=== PATIENT | male | born 1960 | race Caucasian/White ===

== ENCOUNTER 2019-12-27 14:02 | Emergency (ER) | payer OTHER ==
[~2019-12-27] VITALS: Ht 185.4 cm; Wt 113.4 kg
--- OUTSIDE RECORDS SUMMARY | ~2019-12-27 | XMS | Clinical Summary ---
Demographics + + + | Address | [address] | | | [place] [address] | + + + | Home Phone | | + + + | Preferred Language | Unknown | + + + | Marital Status | Single | + + + | Religion Affiliation | Unknown | + + + | Race | or Other | + + + | Ethnic Group | Not or | + + + Author + + + | Author | [facility] | | | and Piter | + + + | Organization | [facility] | | | and [place] | + + + | Address | Unknown | + + + | Phone | Unavailable | + + + Care Team Providers + +------+ + | Care Slate Mixer Name | Role | Phone | + +------+ + PCP | Unavailable | + +------+ + Allergies Not on File Medications Not on file Active Problems Not on file Social History + +-------+ +--------+------+ | Tobacco Use | Types | Packs/Day | Years | Date | | | | | Used | | + +-------+ +--------+------+ | Never Assessed | | | | | + +-------+ +--------+------+ + + + | Sex Assigned at | Date Recorded | | | | + + + | Not on file | | + + + Last Filed Vital Signs Not on file Plan of Treatment + + +-------+ + | Health Maintenance | Due Date | Last | Comments | | | | Done | | + + +-------+ + | Vaccine: | | | | | Dtap/Tdap/Td (1 - | 0 | | | | Tdap) | | | | + + +-------+ + | Vaccine: Zoster (1 | | | | | of 2) | 1 | | | + + +-------+ + | Vaccine: Influenza | | | | | (#1) | 0 | | | + + +-------+ + Results Not on filefrom Last 3 Months"
--- OUTSIDE RECORDS SUMMARY | ~2019-12-27 | XMS | Encounter Summary ---
Demographics + + + | Address | [address] | | | [place] [address] | + + + | Home Phone | | + + + | Preferred Language | Unknown | + + + | Marital Status | Single | + + + | Mormonism Affiliation | Unknown | + + + | Race | or Other | + + + | Ethnic Group | Not or | + + + Author + + + | Author | [facility] | | | and Piter | + + + | Organization | [facility] | | | and [place] | + + + | Address | Unknown | + + + | Phone | Unavailable | + + + Care Team Providers + +------+ + | Care Play Writer Name | Role | Phone | + +------+ + PCP | Unavailable | + +------+ + Encounter Details +--------+ + + + + | Date | Type | Department | Care Team | Description | +--------+ + + + + | 08/14/ | Hospital | [facility] | Fabian Elizalde MD | | | 2011 | Encounter | [facility] | [address] | | | | | CLINICAL LABORATORY | [place] [address] | | | | | [address] | [phone] | | | | | [place], [place] | | | | | | [address] | | | | | | [phone] | | | +--------+ + + + [...] At | + + + | CASE: [id number] PATIENT: ELFEGO GUSTAVO Surgical Pathology Report | [...] | | specimen entirely submitted in cassette [facility]:lac | | | MICROSCOPIC EXAMINATION: Histologic sections of all submitted | | | blocks are examined by light microscopy. These findings, together | | | with the gross examination, support the pathologic diagnosis. | | | Brendan Archer MD Electronically signed Aug 17, 2011 | | | 11:43:34AM | | + + + + +---------+ + + | Performing | Address | City/State/[facility] | Phone Number | | Organization | | | | + +---------+ + + | EXTERNAL LAB | | | | + +---------+ + + documented in this encounter Visit Diagnoses Not on filedocumented in this encounter
[~2019-12-27 14:02] MED LIST: ADVIL200 MG PO; CHLORTHALIDONE25 MG PO; LACTULOSE10 GM/15 M PO; MAGNESIUM CITR296 ML PO
[2019-12-27] MEDS ORDERED: METOPROLOL SUCC50 MG (14:29)
[2019-12-27] MEDS ORDERED: DECADRON6 MG PO (16:16)
== END 2019-12-27 16:43 | disposition home or self-care (01) ==
LOC: ED 14:02
DX: B34.9 Viral infection, unspecified (principal); Z20.828 Contact with and (suspected) exposure to other viral communicable diseases; I10 Essential (primary) hypertension; Z87.891 Personal history of nicotine dependence; Z88.5 Allergy status to narcotic agent; Z88.8 Allergy status to other drugs, medicaments and biological substances; Z79.899 Other long term (current) drug therapy
CPT/HCPCS: 71045; 80053; 82803; 83605; 85025; 85379; 96374; 99284-25; J1100

== ENCOUNTER 2019-12-27 21:05 | Emergency (ER) | payer OTHER ==
[~2019-12-27] VITALS: Ht 185.4 cm; Wt 113.4 kg
--- OUTSIDE RECORDS SUMMARY | ~2019-12-27 | XMS | Encounter Summary ---
Demographics + + + | Address | [address] | | | [place] [address] | + + + | Home Phone | | + + + | Preferred Language | Unknown | + + + | Marital Status | Single | + + + | Nondenominational Affiliation | Unknown | + + + | Race | or Other | + + + | Ethnic Group | Not or | + + + Author + + + | Author | [facility] | | | and Piter | + + + | Organization | [facility] | | | and [place] | + + + | Address | Unknown | + + + | Phone | Unavailable | + + + Care Team Providers + +------+ + | Care Shuttle Spotter Name | Role | Phone | + +------+ + PCP | Unavailable | + +------+ + Encounter Details +--------+ + + + + | Date | Type | Department | Care Team | Description | +--------+ + + + + | 08/14/ | Hospital | [facility] | Fabian Elizalde MD | | | 2011 | Encounter | [facility] | [address] | | | | | CLINICAL LABORATORY | [place] [address] | | | | | [address] | [phone] | | | | | [place], [place] | | | | | | [address] | | | | | | [phone] | | | +--------+ + + + + Social History + +-------+ +--------+------+ | Tobacco [...] on file | | + + + documented as of this encounter Plan of Treatment Not on filedocumented as of this encounter Procedures + +--------+ + + + | Procedure Name | Priori | Date/Time | Associated Diagnosis | Comments | | | ty | | | | + +--------+ + + + | TISSUE REQUEST FOR | Routin | 08/17/2011 | | Results for this | | PATHOLOGY (NON-ORD) | e | 11:43 AM | | procedure are in the | | | | PDT | | results section. | + +--------+ + + + documented in this encounter Results Tissue Request For Pathology (08/17/2011 11:43 AM PDT) + + | Specimen | + + | | + + + + + | Narrative | Performed At | + + + | [id number]: [id number] PATIENT: ELFEGO GUSTAVO Surgical Pathology Report | EXTERNAL LAB | | PATHOLOGIC DIAGNOSIS: COLON, ENDOSCOPIC BIOPSIES, | | | DESIGNATED FROM TRANSVERSE COLON: - TWO TUBULAR ADENOMA | | | FRAGMENTS. - ONE FRAGMENT OF HYPERPLASTIC COLONIC MUCOSA. | | | BM:lac:C2NR CLINICAL HISTORY: 08/15/2011. [211.3]. | | | GROSS DESCRIPTION: The specimen is received in formalin labeled | | | "Elfego Conte" and designated "Transverse colon" consists of one | | | yellow-adam soft tissue fragment that is 0.4 cm in greatest dimension | | | and one brown polypoid tissue fragment that is 0.6 cm in greatest | | | dimension. The polypoid tissue fragment is inked, bisected; and the | | | specimen entirely submitted in cassette [facility]:lac | | | MICROSCOPIC EXAMINATION: Histologic sections of all submitted | | | blocks are examined by light microscopy. These findings, together | | | with the gross examination, support the pathologic diagnosis. | | | Brendan Archer MD Electronically signed Aug 17, 2011 | | | 11:43:34AM | | + + + + +---------+ + + | Performing | Address | City/State[facility] | Phone Number | | Organization | | | | + +---------+ + + | EXTERNAL LAB | | | | + +---------+ + + documented in this encounter Visit Diagnoses Not on filedocumented in this encounter
--- OUTSIDE RECORDS SUMMARY | ~2019-12-27 | XMS | Clinical Summary ---
Demographics + + + | Address | [address] | | | [place] [address] | + + + | Home Phone | | + + + | Preferred Language | Unknown | + + + | Marital Status | Single | + + + | Uatsdin Affiliation | Unknown | + + + | Race | or Other | + + + | Ethnic Group | Not or | + + + Author + + + | Author | [facility] | | | and Piter | + + + | Organization | [facility] | | | and [place] | + + + | Address | Unknown | + + + | Phone | Unavailable | + + + Care Team Providers + +------+ + | Care Mold Shifter Name | Role | Phone | + [...]
[~2019-12-27 21:05] MED LIST changes: +DECADRON6 MG PO; +METOPROLOL SUCC50 MG
--- OUTSIDE RECORDS SUMMARY | 2019-12-27 21:08 | XMS ---
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 - 2 Visits in 30 Days CARE PROVIDERS There are no care providers on record at this time. Roddy has no Care Guidelines for this patient. Fabrice VIS[facility] COUNT (12 MO.) [facility] T[facility] NOTE: Visits indicate total known visits. ED/C VISIT TRACKING (12 MO.) 12/27/2019 21:06 [facility] [place] TYPE: Emergency COMPLAINT: - FLU SYMPTOMS 12/27/2019 14:03 [facility] [place] TYPE: Emergency COMPLAINT: - SOB INPATIENT VISIT TRACKING (12 MO.) No inpatient visits to display in this time frame [id number]
== END 2019-12-28 08:22 | disposition home or self-care (01) ==
LOC: ED 21:05
DX: J98.9 Respiratory disorder, unspecified (principal); Z20.828 Contact with and (suspected) exposure to other viral communicable diseases; I10 Essential (primary) hypertension; Z87.891 Personal history of nicotine dependence; Z88.5 Allergy status to narcotic agent; Z88.8 Allergy status to other drugs, medicaments and biological substances; Z79.899 Other long term (current) drug therapy
CPT/HCPCS: 96360; 99284-25; J7030

== ENCOUNTER 2021-01-24 09:54 | Emergency (ER) | payer OTHER ==
[~2021-01-24] VITALS: Ht 185.4 cm; Wt 113.4 kg
[~2021-01-24 09:54] MED LIST changes: -CHLORTHALIDONE25 MG PO; +HYDROCHLOROTH12.5 M1 PO; -METOPROLOL SUCC50 MG; +METOPROLOL SUCC50 MG PO
== END 2021-01-24 19:00 | disposition home or self-care (01) ==
LOC: ED 09:54
DX: L03.116 Cellulitis of left lower limb (principal); I10 Essential (primary) hypertension; Z20.822 Contact with and (suspected) exposure to COVID-19; Z87.891 Personal history of nicotine dependence; Z79.899 Other long term (current) drug therapy; Z88.5 Allergy status to narcotic agent; Z88.8 Allergy status to other drugs, medicaments and biological substances
CPT/HCPCS: 71045; 80053; 83605; 85025; 96372; 99283-25; J0696; U0003

== ENCOUNTER 2021-01-26 08:09 | Inpatient (IN) | payer OTHER ==
[~2021-01-26] VITALS: Ht 185.4 cm; Wt 132.0 kg
--- OUTSIDE RECORDS SUMMARY | 2021-01-26 08:18 | XMS ---
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 Roddy has no Care Guidelines for this patient. Fabrice [facility] (12 MO.) [facility] NOTE: Visits indicate total known visits. ED/C VISIT TRACKING (12 MO.) 01/26/2021 08:11 [facility] [place] TYPE: Emergency COMPLAINT: - L LEG SWELLING/PAIN 01/24/2021 09:55 [facility] [place] TYPE: Emergency COMPLAINT: - SKIN PROBLEM INPATIENT VISIT TRACKING (12 MO.) No inpatient visits to display in this time frame [id number]
--- NOTE | 2021-01-26 14:33 | NUR ---
PATIENT ADMITTED TO MED SURG. PATIENT DENIES PAIN OR NAUSEA. PATIENT HAS LEFT LEG ELEVATED ON 3 PILLOWS, REDNESS ON LEUNG IS OUTLINED, RED, HOT, SKIN IS INTACT WITH NO DRAINAGE. PATIENT HAS HAD LUNCH. IV ROCEPHIN IS INFUSING TO RIGHT PICC LINE. PATIENT REPORTS THAT HE HAS NOT HAD A BM FOR 4-5 DAYS AND IS INTERESTED IN SOMETHING FOR THAT. X2 GUARDS AT BEDSIDE. IV VANCO TO BE INFUSED WHEN AVAILABLE FROM PHARMACY.
[2021-01-26] MEDS ORDERED: LOTRIMIN AF12 GM TOP (16:04)
[2021-01-26] MEDS ORDERED: ONDANSETRON ODT4 MG PO (16:05)
[2021-01-26] MEDS ORDERED: CEFTRIAXONE1 G2 IM (16:06)
[2021-01-26] MEDS ORDERED: ULTRAM50 MG PO (16:07)
[2021-01-26] MEDS ORDERED: DOXYCYCLINE HY100 MG PO (16:07)
--- NOTE | 2021-01-26 16:08 | NUR ---
MED REC COMPLETE
--- NOTE | 2021-01-26 16:20 | NUR ---
PATIENT IS SLEEPING, IV VANCO INFUSING TO RIGHT PICC LINE.
--- NOTE | 2021-01-26 18:06 | NUR ---
PT RESTING IN BED. HAS FRESH ICE WATER. TWO GUARDS IN ROOM. CALL LIGHT IN REACH. NO FURTHER NEEDS AT THIS TIME.
--- NOTE | 2021-01-26 18:29 | NUR ---
PATIENT IS RESTING IN BED, CONTINUES TO DENY PAIN, LEFT LEG IS ELEVATED ON 3 PILLOWS, EDEMA IS STABLE AND PRESENT 2+ IN LEFT ANKLE, REDNESS IS UNCHANGED FROM EARLIER ASSESSMENT AND IS WITHIN OUTLINE. PATIENT DENIES PAIN, NAUSEA, OR NEEDS AT THIS TIME.
--- NOTE | 2021-01-26 19:36 | NUR ---
REPORT RECEIVED FROM STAR CERVANTES. pt RESTING IN BED. GUARDS IN ROOM.
--- NOTE | 2021-01-26 21:37 | NUR ---
Two police officers are in the room with patient. Vitals, I&Os are complete.
--- NOTE | 2021-01-26 22:05 | NUR ---
pt RESTING IN BED. C/O SHEN AND NECK PAIN, PRN TYLENOL ADMINISTERED. ASSESSMENT COMPLETE. LLE ELEVATED ON PILLOW, 2+ PITTING EDEMA, HOT TO TOUCH, REDNESS WITHIN MARGINS. pt C/O TINGLING ON BALL OF LEFT FOOT. PICC LINE FLUSHED WNL, BRISK BLOOD RETURN. CALL LIGHT IN REACH. GUARDS IN ROOM.
--- NOTE | 2021-01-27 00:05 | NUR ---
pt RESTING IN BED, DROWSY. PICC LINE FLUSHED WNL. BRISK BLOOD RETURN. IV VANCOMYCIN INFUSING WNL. CALL LIGHT IN REACH. NO ADDITIONAL NEEDS. GUARDS IN ROOM.
--- NOTE | 2021-01-27 02:10 | NUR ---
pt AWAKENS TO RN ENTERING ROOM. VSS. IV ANTIBIOTIC INFUSING WNL. GUARDS IN ROOM. URINAL EMPTIED. CALL LIGHT IN REACH.
--- NOTE | 2021-01-27 02:45 | NUR ---
Patient vitals, I&Os are complete. Patient has not seem to fallen asleep yet.
--- NOTE | 2021-01-27 05:55 | NUR ---
pt SLEEPING, AWAKENS TO VOICE. VSS. pt DENIES PAIN. ASSESSMENT COMPLETE. CSM INTACT. pt NOW STATES SENSATION INTACT LLE. REDNESS OUTSIDE OF MARGINS LLE. LEFT LEG HOT TO TOUCH, EDEMA MILDLY IMPROVED FROM START OF SHIFT, REMAINS ELEVATED ON PILLOWS. LABS DRAWN FROM PICC LINE. CALL LIGHT IN REACH.
--- NOTE | 2021-01-27 10:50 | NUR ---
PT CURRENTLY SITTING IN BED WATCHING TV WITH GUARDS IN ROOM. PT ATE 100% OF BREAKFAST. PT DENIES NEEDS AT THIS TIME. CALL LIGHT IN REACH.
--- NOTE | 2021-01-27 18:39 | NUR ---
PT SPENT HIS DAY WITH HIS LONG TERM GUARDS EATING ALL HIS MEALS AND WATCHING TV. PT IS IN RESTRAINTS BY GUARDS AND HIS L LOWER LEG REMAINS UNCHANGED ON THIS SHIFT. PT TO CONTINUE ABX.
--- NOTE | 2021-01-27 19:10 | NUR ---
SHIFT REPORT RECEIVED FROM PATI GRAVES. PT RESTING IN BED. C.O.s IN ROOM. NO NEEDS AT THIS TIME.
--- NOTE | 2021-01-27 19:52 | NUR ---
PATIENT PROVIDED WITH FRESH ICE WATER. PATIENT VITALS CHARTED, ROOM TIDIED, CALL LIGHT LEFT WITHIN REACH. NO OTHER IMMEDIATE NEEDS AT THIS TIME.
--- NOTE | 2021-01-27 20:16 | NUR ---
ASSESSMENT COMPLETED. GCS 15, A7O X4. CMS INTACT X4. LUNGS CLEAR. HEART TONES REGULAR. ABD OBESE, BOWEL TONES ACTIVE, NONTENDER. REDNESS AND SWELLING RLE 2+ WITH POSTERIOR REDNESS EXPANDED BEYOND OUTLINE SLIGHTKY. NO OTHER NEEDS. C.O.s IN ROOM. NO OTHER NEEDS.
--- NOTE | 2021-01-27 22:00 | NUR ---
PT RESTING IN BED, WATCHING TV. C.Os IN ROOM NO NEEDS AT THIS TIME.
--- NOTE | 2021-01-28 00:30 | NUR ---
IN pt ROOM FOR IV ANTIBIOTIC ADMINISTRATION. PICC LINE WITH BRISK BLOOD RETURN. ANTIBIOTIC INFUSING ORDERED. pt C/O NAUSEA DUE TO "WEIRD TASTE IN MOUTH SINCE ANTIBIOTIC". PRN NAUSEA MEDICATION ADMINISTERED. GUARDS IN ROOM. ICE WATER PROVIDED. CALL LIGHT IN REACH.
--- NOTE | 2021-01-28 02:00 | NUR ---
PT RESTING IN BED, EYES CLOSED. RR EVEN, UNLABORED. C.Os IN ROOM.
--- NOTE | 2021-01-28 03:55 | NUR ---
PT RESTING IN BED, EYES CLOSED. RR EVEN, UNLABORED. C.Os IN ROOM.
--- NOTE | 2021-01-28 05:45 | NUR ---
ASSESSMENT, VS AND I&O COMLPETED. LLE REDNESS AND EDEMA UNCHANGED. PT REPORTS 10/08 SHEN, PRN PAIN MED PROVIDED. C.O.s IN ROOM. ICE WATER PROVIDED. NO OTHER NEEDS. CALL LIGHT IN REACH.
--- NOTE | 2021-01-28 08:50 | NUR ---
pt completed breakfast 100% up to the bathroom to void independently, guards x2 standing at bathroom entrance.
--- NOTE | 2021-01-28 10:30 | NUR ---
PATIENT SLEEPING. STAFF STATES SHE HAS NO KNOWN BARRIERS FOR D/C HOME WITH FAMILY KNOWN AT THIS TIME. WILL FOLLOW IF NEEDED.
--- NOTE | 2021-01-28 11:55 | NUR ---
PT PROVIDED FRESH ICE WATER X2 CUPS, BLOOD DRAWN FROM PICC LINE FOR VANCO TROUGH. GUARDS STANDING AT BEDSIDE X2.
--- NOTE | 2021-01-28 13:33 | NUR ---
VANCOMYCIN INFUSING IN PICC LINE AT THIS TIME. EDUCATION PROVIDED TO PATIENT ON MEDICATIONS AND BLOOD DRAWS.
--- NOTE | 2021-01-28 17:07 | NUR ---
NO KNOWN BARRIERS TO RETURN TO [facility] WITH STAFF AT DISCHARGE.
--- NOTE | 2021-01-28 17:32 | NUR ---
PT RESTING IN BED NO DISTRESS, GUARDS X2 AT BEDSIDE. HE HAS NO REPORT OF PAIN.
--- NOTE | 2021-01-28 18:03 | NUR ---
PT HAS NOT REPORTED ANY NEED FOR PAIN COVERAGE OVER SHIFT. HE DOES REPORT INCREASED PAIN WITH AMBULATION THAT IMPROVES WITH REST. IMPROVEMENT NOTED ON ASSESSMENT OF LLE. PT AMBULATES INDEPENDENTLY TO BATHROOM. EATING 100% OF MEALS AND DRINKING 600ML APPROXIMATELY EVERY 3-4 HOURS.
--- NOTE | 2021-01-28 19:25 | NUR ---
SHIFT REPORT RECEIVED FROM DAYSHIFT STAR CASTRO AT BEDSIDE, pt AWAKE AND RESTING IN BED. RR EVEN AND UNLABORED, NO DISTRESS NOTED. URINAL EMPTIED, FRESH WATER GIVEN. NO FURTHER NEEDS. CALL LIGHT IN REACH.
--- NOTE | 2021-01-28 22:00 | NUR ---
ASSESSMENT COMPLETE, VSS. pt REPORTS SOME DISCOMFORT WITH LLE WHEN AMBULATING, BUT DENIES PAIN AND NEED FOR PAIN MEDICATION. REDDNESS WITHIN OUTLINE, WARM TO THE TOUCH. [facility] RESTRAINTS IN PLACE, GUARDS X2 IN ROOM. pt PLEASANT AND COMPLIANT WITH CARE. BRISK BLOOD RETURN TO PICC LINE, IV VANCO INFUSING. NO FURHTER EEDS, CALL LIGHT IN REACH.
--- NOTE | 2021-01-29 00:20 | NUR ---
IV VANCO COMPLETE, PICC LINE FLUSHED AND HEP LOCKED PER POLICY. URINAL EMPTIED, NO FURTHER NEEDS. CALL LIGHT IN REACH.
--- NOTE | 2021-01-29 03:00 | NUR ---
pt RESTING IN BED WITH EYES CLOSED, RR EVEN AND UNLABORED. NO DISTRESS NOTED, GUARDS X2 IN ROOM. CALL LIGHT IN REACH.
--- NOTE | 2021-01-29 05:30 | NUR ---
am lab draw collected and sent to lab via picc line. iv abx infusing per md orders, picc line wnl. no acute changes to assessment, pt denies pain and nausea. no change to reddness-remains within outline. call light in reach.
--- NOTE | 2021-01-29 09:18 | NUR ---
PT SITTING UP FOR BREAKFAST. HE REPORTS HE IS FEELING WELL THIS AM, NO ISSUES, HE DECLINES BOWEL MEDICATIONS, HE HAD A BM THIS AM AND YESTURDAY AND OVERNIGHT. TWO [facility] GUARDS AT BEDSIDE.
--- NOTE | 2021-01-29 10:44 | NUR ---
Vitals, I&Os are done. Patient is in bed and two police officers are within the room.
--- NOTE | 2021-01-29 14:13 | NUR ---
Vitals, I&Os are complete. Patient is in bed.
--- NOTE | 2021-01-29 17:35 | NUR ---
Patient vitals, I&Os are done. Patient ordered a different dinnner because he would like something else than what he recieved. Patient said he was feel shortness of breath, with oxygen ranging from 90 to 93.
--- NOTE | 2021-01-29 18:36 | NUR ---
PT HAS HAD UNEVENTFUL SHIFT. HE HAS HAD A BM THIS AM. AMBULATES INDEPENDENT WITH GUARDS IN ROOM, V/S STABLE DRINKS COPIOUS AMOUNTS OF ICE WATER, VOIDING WELL OVER QUANTITY SUFFICIENT. CONSUMING 80% AND GREATER OF MEALS. NO INFORMATICA MDM ARCHITECT SHIFT TO [facility] RED AREA OUTLINES, OVERALL IMPROVEMENT FROM ADMISSION, MIGUEL PORTILLO DONE TODAY, HE HAS NOT REPORTED ANY NEED FOR PAIN COVERAGE, PICC AT RIGHT ARM DRESSING INTACT BLOOD RETURN, HEPLOCKED AFTER VANCO INFUSION.
--- NOTE | 2021-01-29 19:15 | NUR ---
SHIFT REPORT RECEIVED FROM DAYSHIFT STAR CASTRO AT BEDSIDE. pt AWAKE AND RESTING IN BED, [facility] RESTRAINTS IN PLACE, [facility] GUARDS X2 IN ROOM. pt DENIES NEEDS OR CONCERNS, CALL LIGHT IN REACH. LLE ELEVATED IN BED WITH PILLOW, REDDNESS WITHIN OUTLINE, REMAINS WARM TO THE TOUCH, WILL CONTINUE TO MONITOR.
--- NOTE | 2021-01-29 21:15 | NUR ---
ASSESSMENT COMPLETE, SCHEDULED MEDS GIVEN (SEE EMAR). VSS, pt A/OX4 AND DENIES PAIN AND NAUSEA. REDDNESS TO LLE WITHIN OUTLINE, WITH INCREASED REDDNESS NOTED AFTER AMBULATION AND RETURNING TO BASELINE. +2 EDEMA TO LLE FOOT, ELEVATED IN BED. PICC LINE WNL, BRISK BLOOD RETURN NOTED, SCHEDULED IV VANCO GIVEN DIRECTED. NO FURTHER NEEDS, CALL LIGHT IN REACH.
--- NOTE | 2021-01-29 23:36 | NUR ---
IV VANCO COMPLETE, PICC LINE FLUSHED WITH NS AND HEP LOCKED PER POLICY. URINAL EMPTIED, NO FURTHER NEEDS. CALL LIGHT IN REACH.
--- NOTE | 2021-01-30 00:27 | NUR ---
pt AWAKE AND RESTING IN BED, WATCHING TV. [facility] GUARDS X2 ALSO IN ROOM. NO NEEDS OR CONCERNS VERBALIZED BY pt, CALL LIGHT IN REACH.
--- NOTE | 2021-01-30 04:30 | NUR ---
pt RESTING IN BED WITH EYES CLOSED, RR EVEN AND UNLABORED, NO DISTRESS NOTED. CALL LIGHT IN REACH. [facility] GUARDS X2 IN ROOM, [facility] RESTRAINTS IN PLACE.
--- NOTE | 2021-01-30 05:15 | NUR ---
AM LAB DRAW COLLECTED VIA PICC LINE AND SENT TO LAB. PICC LINE FLUSHED WITH NS PER POLICY, SCHEDULED IV VANCO INFUSING PER MD ORDERS, PICC DRESSING C/D/I. REDDNESS REMAINS NOTED TO LLE, WARM TO THE TOUCH. REDDNESS TO BACK OF MEDIAL CALF, SLIGHTLY BEYOND OUTLINE-OVERALL COLOR/REDDNESS TO LLE IMPROVING. WILL CONTINUE TO MONITOR, BEACH EXPERTSTAR SHARMA ALSO AWARE. VS AND I&O'S COLLECTED BY NATE HENRIQUEZ. NO FURTHER NEEDS, CALL LIGHT IN REACH.
--- NOTE | 2021-01-30 09:43 | NUR ---
PATIENT IN BED RESTING, 2 GUARDS IN ROOM. RN IN ROOM. VITALS AND I&O'S CHARTED. FRESH WATER GIVEN. CALL LIGHT IN REACH. NO FURTHER NEEDS AT THIS TIME.
--- NOTE | 2021-01-30 10:30 | NUR ---
Patient awake, alert and oriented. Patient recently up to bathroom for void; q/s urine output. Left leg elevated, redness is receding from previously marked areas. Picc line dressing is CDI, flushed well, brisk blood return noted. Two correctional officers at bedside. Patient in correctional wrist/ankle restraints.
--- NOTE | 2021-01-30 11:35 | NUR ---
Patient awake, alert and oriented. Patient up to bathroom to void; q/s. Left leg elevated, dressing CDI, redness is receding from marked areas. PICC line dressing CDI; flushed well with ns, brisk blood return noted. Two correctional officers at bedside. Patient in correctional wrist/ankle soft restraints.
--- NOTE | 2021-01-30 14:00 | NUR ---
PATIENT IN BED WATCHING TV. 2 GUARDS IN ROOM. VITALS AND I&O'S CHARTED. FRESH WATER GIVEN. CALL LIGHT IN REACH. NO FURTHER NEEDS AT THIST STAR.
--- NOTE | 2021-01-30 18:14 | NUR ---
Patient doing well, resting in bed snacking at this time. Patient has left leg elevated. Dressing to LLE remains CDI. Patient denies needs at this time. Personal supplies and call light within reach.
--- NOTE | 2021-01-30 18:16 | NUR ---
Patient doing well this evening, resting in bed watching tv. Patient denies pain. LLE elevated, redness appears unchanged-receding from marked areas. Patient denies needs. Two correctional officers at bedside. Personal supplies and call light within reach.
--- NOTE | 2021-01-30 18:53 | NUR ---
PATIENT IN BED WATCHING TV. 2 GUARDS IN ROOM. VITALS AND I&O'S CHARTED. FRESH WATER GIVEN. CALL LIGHT IN REACH. NO FURTHER NEEDS AT THIST STAR.
--- NOTE | 2021-01-30 19:20 | NUR ---
SHIFT REPORT RECEIVED FROM ANH PLUNKETT AT BEDSIDE, pt AWAKE AND RESTING IN BED. REDDNESS TO LLE WITHIN OUTLINE AND CURRENTLY ELEVATED IN BED WITH USE OF PILLOW. [facility] RESTRAINTS IN PLACE WITH [facility] GUARDS X2 ALSO IN ROOM. CALL LIGHT IN REACH.
--- NOTE | 2021-01-30 21:15 | NUR ---
ASSESSMENT COMPLETE, SCHEDULED VANCO INFUSING DIRECTED VIA PICC LINE, BRISK BLOOD RETURN NOTED. DRESSING C/D/I. pt A/OX4, VSS, AND RECENTLY VOIDED VIA URINAL. pt DENIES PAIN, LLE REDDNESS IMPRVOVING, REMAINS WITHIN OUTLINE. +2 EDEMA TO LLE, ELEVATED WITH PILLOWS X2, PEDAL PULSE STRONG AND CAP REFILL WNL. CMS INTACT, pt DENIES NUMBNESS AND TINGLING. [facility] RESTRAINTS REMAIN IN PLACE, [facility] GUARDS X2 ALSO IN ROOM PER POLICY. NO FURTHER NEEDS, CALL LIGHT IN REACH.
--- NOTE | 2021-01-30 23:23 | NUR ---
IV VANCO COMPLETE, PICC LINE WNL FLUSHED WITH NS AND HEP LOCKED PER POLICY. PUMP CLEARED, NO FURTHER NEEDS. CALL LIGHT IN REACH.
--- NOTE | 2021-01-31 00:36 | NUR ---
pt AWAKE AND RESTING IN BED, WATCHING TV. NO NEEDS OR CONCERNS VERBALIZED, CALL LIGHT IN REACH.
--- NOTE | 2021-01-31 05:28 | NUR ---
LAB DRAW COMPLETE AND SENT TO LAB, SCHEDULED VANCO INFUSING VIA PICC LINE DIRECTED. NO NEW OR ACUTE CHANGES TO ASSESSMENT. REDDNESS TO LLE CONTINUES TO IMPROVE, REMAINS ELEVATED WITH PILLOWS IN BED. FRESH WATER PROVIDED, VS AND I&O'S COMPLETE. CALL LIGHT IN REACH.
--- NOTE | 2021-01-31 07:42 | NUR ---
Patient resting in bed watching tv, no distress. Patient denies pain at this time. Left leg elevated on pillows-redness continues to recede from marked area. Skin in LLE is warm to touch. Picc line dressing is CDI; flushed well with brisk blood return noted. Patient has no current needs. Personal supplies and call light within reach.
--- NOTE | 2021-01-31 09:58 | NUR ---
PATIENT IN BED WATCHING TV. 2 GUARDS IN ROOM. VITALS AND I&O'S CHARTED. CALL LIGHT IN REACH. NO FURTHER NEEDS AT THIS TIME.
--- NOTE | 2021-01-31 13:39 | NUR ---
Patient resting in bed, alert and oriented x4. Patient denies pain. LLE remains elevated on pillows. Patient reports he's doing well at this time. PICC dressing remains CDI.
--- NOTE | 2021-01-31 14:42 | NUR ---
PATIENT IN BED WATCHING TV. 2 GUARDS IN ROOM. VITALS AND I&O'S CHARTED. CALL LIGHT IN REACH. NO FURTHER NEEDS AT THIS TIME. FRESH WATER GIVEN.
--- NOTE | 2021-01-31 18:23 | NUR ---
Patient resting in bed, a&ox4. LLE elevated on pillows, edema lessened, redness continues to improvde- receding within the marked lines. Patient reports he has no pain. No curent needs. Two correctional officers at bedside.
--- NOTE | 2021-01-31 18:45 | NUR ---
PATIENT IN BED WATCHING TV, 2 GUARDS IN ROOM. VITALS AND I&O'S CHARTED. FRESH WATER GIVEN. CALL LIGHT IN REACH. NO FURTHER NEEDS AT THIS TIME.
--- NOTE | 2021-01-31 19:25 | NUR ---
SHIFT REPORT RECEIVED FROM DAYSHIFT STAR PLUNKETT AT BEDSIDE. pt AWAKE AND RESTING IN BED, LLE ELEVATED IN BED. NO NEEDS OR CONCERNS NOTED, CALL LIGHT IN REACH.
--- NOTE | 2021-01-31 22:30 | NUR ---
ASSESSMENT COMPLETE AND VSS. pt WITH FLAT AFFECT, STATES, "I FEEL LIKE I'M COMING DOWN WITH SOMETHING". WHEN ASKED FOLLOW UP QUESTIONS, pt DEFFERES RESPONSE AND JUST STATES, "I DON'T KNOW". pt AFEBRILE, LUNG SOUNDS CLEAR". VSS, PRN TYLENOL GIVEN FOR UNRATED GENERALIZED BODY ACHES (SEE EMAR). LLE REMAINS ELEVATED, REDDNESS WITHIN OUTLINE AND RECEDING, REMAINS WARM TO THE TOUCH. EDEMA TO LLE APPEARS TO ALSO BE IMPROVING. GUARDS X2 IN ROOM. BRISK BLOD RETURN TO PICC LINE, VANCO INFUSING DIRECTED. CALL LIGHT IN REACH.
--- NOTE | 2021-02-01 00:42 | NUR ---
IV VANCO COMPLETE, PICC LINE FLUSHED WITH NS AND HEP LOCKED PER POLICY. NO FURTHER NEEDS, CALL LIGHT IN REACH.
--- NOTE | 2021-02-01 02:11 | NUR ---
pt RESTING IN BED WITH EYES CLOSED, RR EVEN AND UNLABORED. NO SIGNS OF PAIN NOTED, CALL LIGHT IN REACH.
--- NOTE | 2021-02-01 04:30 | NUR ---
pt RESTING IN BED WITH EYES CLOSED, RR EVEN AND UNLABORD. GUARDS IN ROOM. CALL LIGHT IN REACH.
--- NOTE | 2021-02-01 06:19 | NUR ---
ASSESSMENT COMPLETE, PRN TYLENOL GIVEN FOR 4-5/10 PAIN R/T HEADACHE. NO ACUTE CHANGES TO ASSESSMENT. VSS AND FRESH WATER GIVEN. IV VANCO INFUSING DIRECTED VIA PICC LINE, LAB DRAW DONE AND SENT NO FURTHER NEEDS. CALL LIGHT IN REACH.
--- NOTE | 2021-02-01 08:30 | NUR ---
PATIENT IS RESTING IN BED ON HIS BACK. WHITE BOARD UPDATED. GUARDS ARE IN ROOM. HE DOES NOT NEED ANYTHING AT THIS TIME. CALL LIGHT IN REACH.
--- NOTE | 2021-02-01 10:28 | NUR ---
PATIENT IS RESTING IN BED. TWO GUARDS IN ROOM. TOOK PATIENTS VITALS AND CHARTED I&OS. PATIENT RECIEVED FRESH ICE WATER. DOES NOT NEED ANYTHING ELSE AT THIS TIME. CALL LIGHT IN REACH.
--- NOTE | 2021-02-01 11:00 | NUR ---
Patient awake watching tv at this time. LLE elevated on pillows. LLE appears imrpoved, less redness and swelling noted. Patient denies pain at this time. Two correctional officers at bedside. Personal supplies and call light within reach.
[2021-02-01] MEDS ORDERED: HEPARIN 5010 UNIT/1 IV ×2 (12:40)
[2021-02-01] MEDS ORDERED: VANCOMYCIN IV (12:40)
== END 2021-02-01 14:55 | disposition home or self-care (01) | DRG 603 ==
LOC: ED 08:09 → MS 13:30
PROVIDERS: ADMIT Student in an Organized Health Care Education/Training Program; ATTEND Student in an Organized Health Care Education/Training Program
PROC: 05H933Z Insertion of Infusion Device into Right Brachial Vein, Percutaneous Approach (ICD-10-PCS; 2021-01-26)
PROC: 02HV33Z Insertion of Infusion Device into Superior Vena Cava, Percutaneous Approach (ICD-10-PCS; principal; 2021-01-26 10:00)
DX: L03.116 Cellulitis of left lower limb (principal); Z20.822 Contact with and (suspected) exposure to COVID-19; I10 Essential (primary) hypertension; Z87.891 Personal history of nicotine dependence; K75.89 Other specified inflammatory liver diseases; Z90.49 Acquired absence of other specified parts of digestive tract; Z98.890 Other specified postprocedural states; Z88.8 Allergy status to other drugs, medicaments and biological substances; Z79.899 Other long term (current) drug therapy
CPT/HCPCS: 36569; 36573; 71045; 80048; 80053; 80076; 80202; 83605; 83735; 85025; 85651; 87040; 93971; 99284-25; C1751; C9803; J0696; J1650; J2405; J3370; J7060; U0003

== ENCOUNTER 2024-11-08 08:12 | Emergency (ER) | payer OTHER ==
[~2024-11-08] VITALS: Ht 185.4 cm; Wt 129.0 kg
[~2024-11-08 08:12] MED LIST changes: +CEFTRIAXONE1 G2 IM; +DOXYCYCLINE HY100 MG PO; +HEPARIN 5010 UNIT/1 IV; +LOTRIMIN AF12 GM TOP; +ONDANSETRON ODT4 MG PO; +ULTRAM50 MG PO; +VANCOMYCIN IV
[2024-11-08] MEDS ORDERED: NITROGLYCERIN 0.4 MG SUBL SL PRN (08:15)
[2024-11-08 08:53] LABS: BASOPHILS 0.4 % (0.2-1.2); EOSINOPHILS 2.4 % (0.8-7.0); LYMPHOCYTES 22.9 % (21.8-53.1); MCH 30.5 PG (25.7-32.2); MCHC 33.7 g/dL (32.3-36.5); MCV 90.3 fL (79.0-92.2); MONOCYTES 6.5 % (5.3-12.2); NEUTROPHILS 67.6 % (34.0-67.9); RBC 4.76 M/uL (4.63-6.08)
[2024-11-08] MEDS ORDERED: LIDOCAINE & ANTACID 35 ML BTL PO ONE (09:00)
[2024-11-08] MEDS ORDERED: FAMOTIDINE 20 MG/ 2 ML VIAL IV ONE (09:00)
[2024-11-08 09:11] LABS: ALT (SGPT) 57.0 U/L (14-59); AST (SGOT) 34.0 U/L (15-37); GLOMERULAR FILTRATION RATE,EST 98.0 mL/min (>60); PROTEIN, TOTAL 7.6 g/dL (6.4-8.2); UREA NITROGEN 22.0 mg/dL (7-18)
[2024-11-08] MEDS ORDERED: HYDROCODONE/ACETA 5/325 TAB PO ONE (10:45)
[2024-11-08 12:22] VITALS: BP 130/82
--- NOTE | 2024-11-08 12:53 | EKG ---
[facility] [address] [facility] [place] [address] Signed Normal sinus rhythm with sinus arrhythmia Right axis deviation Abnormal ECG No previous ECGs available Confirmed by Beau Arnett MD () on 11/08/2024 12:53:14 PM Electronically Signed By: BEAU ARNETT MD 11/08/24 1253 PATIENT NAME: ELFEGO CHEN Electrocardiogram DATE OF : 60 PHYSICIAN: BEAU ARNETT MD REPORT #: [id number] REPORT IS CONFIDENTIAL AND NOT TO BE RELEASED WITHOUT AUTHORIZATION
== END 2024-11-08 12:36 | disposition home or self-care (01) ==
LOC: ED 08:12
PROVIDERS: Emergency Medicine
DX: R07.89 Other chest pain (principal); I11.0 Hypertensive heart disease with heart failure; I50.9 Heart failure, unspecified; Z87.891 Personal history of nicotine dependence; Z88.5 Allergy status to narcotic agent; Z88.8 Allergy status to other drugs, medicaments and biological substances
CPT/HCPCS: 36415; 71045; 80053; 83735; 84484; 85025; 93005; 93010; 96374; 99285-25